=== PATIENT | female | born 1950 ===

== ENCOUNTER 2017-02-28 20:07 | Emergency (ER) | payer MEDICARE ==
[2017-02-28 20:23] VITALS: O2SAT 100
--- NOTE | 2017-02-28 20:25 | C.PDOC ---
History Of Present Illness 66 yo female come in for evaluation of Right sided neck pain and swelling gradually developed for past 2 days. Pt reports, pain gradually started yesterday in AM over Right sided occipital area and neck and gradually worsen during the day, associated with some swelling over upper back. Pain is localized over Right neck and upper back and worse with Right arm movement. Otherwise, pt denies fever, chills, denies worse headache of life, dizziness, vertigo, visual changes, focal deficits, recent illness, sore throat, CP, SOB, dyspnea, diaphoresis, palpitation, abd. pain, N/V/D, back pain, UTI sx, denies weakness, sensory or vascular deficits to B/L UEs. Ambulate to ED for evaluation , appears in pain. Time Seen by Provider: 02/28/17 20:19 Chief Complaint (Nursing): Back Pain Past Medical History Vital Signs: Last Vital Signs Temp 98 F 02/28/17 21:14 Pulse 85 02/28/17 21:14 Resp 18 02/28/17 21:14 BP 122/74 02/28/17 21:14 Pulse Ox 100 02/28/17 21:14 Surgical History: Appendectomy - [facility] Procedures DIPHTHERIA TOXOID ADMIN (03/06/14) IMMOBILIZ/WOUND ATTN NEC (02/15/14) TETANUS TOXOID ADMINIST (03/06/14) Family History: States: No Known Family Hx - Social History Hx Alcohol Use: No Hx Substance Use: No - Immunization History Hx Tetanus Toxoid Vaccination: No Hx Influenza Vaccination: No Hx Pneumococcal Vaccination: No Physical Exam - Physical Exam Appears: Well, Non-toxic, No Acute Distress Skin: Normal Color, Warm, Dry, No Rash Eye(s): bilateral: PERRL Nose: No Flaring Oral Mucosa: Moist Throat: Normal, No Erythema, No Exudate, No Drooling Neck: No Midline Cervical Tenderness, Paracervical Tenderness (Diffuse Right sided lateral neck reproducible tenderness over trapezium muscle with moderate muscle spasm extend from occipital area down to Right upper arm.), No Step Off Deformity, Supple Chest: Symmetrical, No Deformity, No Tenderness Cardiovascular: Rhythm Regular Respiratory: Normal Breath Sounds, No Stridor, No Wheezing Back: Normal Inspection, No Vertebral Tenderness, No Paraspinal Tenderness Extremity: No Pedal Edema Neurological/Psych: Oriented x3, Normal Speech ED Course And Treatment O2 Sat by Pulse Oximetry: 100 Pulse Ox Interpretation: Normal - Other Rad C-spine X-Ray: Interpreted by Me, Viewed By Me Interpretation: (-) acute fx or sublux Right shoulder X-Ray: Interpreted by Me, Viewed By Me Interpretation: (+) mod DJD, no acute fx or dislocation Progress Note: On re-evaluation, pt is afebrile, hemodynamicaly stable. Non- toxic. Pt reports, moderate improvement in pain. head: AT/NC. ENT: no acute findings. neck: (+) Right sided cervical strain with muscle spasm. No midline tenderness, no skin changes. Lungs: CTA B/L, BS equal B/L. Neurologicaly intact. Imaging review and appears without acute abnormalities. Pt was advised on course of ds. ref. to f/u with PMD in 2-3 days for re-eavl. Return if any worsening or new changes. Disposition Counseled Patient/Family Regarding: Studies Performed, Diagnosis, Need For Followup, Rx Given - Disposition Referrals: Austin Bolden MD [Staff Provider] - Disposition: HOME/ ROUTINE Disposition Time: 20:55 Condition: STABLE Additional Instructions: Light duty to Right arm Take medication as prescribed Follow up with PMD in 2-3 days for re-evaluation. return to ED if any worsening or new changes. Prescriptions: Methocarbamol [Robaxin] 500 mg PO TID #14 tab traMADol [Ultram] 50 mg PO TID #7 tab Instructions: Cervical Sprain (ED), Muscle Spasm (ED) - Clinical Impression Clinical Impression: Cervical strain
[2017-02-28] MEDS ORDERED: Oxycodone/Acetaminophen 5/325 mg Tab PO STA (20:35)
[2017-02-28] MEDS ORDERED: Oxycodone/Acetaminophen 5/325 mg Tab ONE (20:37)
[2017-02-28 20:48] LABS: RBC URINE 1 /hpf (0-3); URINE BILIRUBIN NEGATIVE (NEGATIVE); URINE BLOOD NEGATIVE (NEGATIVE); URINE COLOR Yellow (YELLOW); URINE GLUCOSE (UA) NORMAL (Normal); URINE KETONE NEGATIVE (NEGATIVE); URINE LEUKOCYTE ESTERASE NEG Leu/uL (Negative); URINE PROTEIN NEGATIVE (NEGATIVE); URINE UROBILINOGEN NORMAL mg/dL (0.2-1.0); WBC URINE 4 /hpf (0-5)
[2017-02-28 21:15] VITALS: BP 122/74; PULSE 85; RESP 18; TEMP 98
--- NOTE | 2017-03-01 10:37 | RAD ---
PROCEDURE: Radiographs of the Right Shoulder HISTORY: pain COMPARISON: Six FINDINGS: BONES: No acute fracture. JOINTS: Degenerative changes, of right acromioclavicular joint -severe. Moderate glenohumeral degenerative change with high riding humeral head relative to the glenoid indicative of rotator cuff disease. Medial inferior humeral head spur adjacent to the glenoid. SOFT TISSUES: Normal. OTHER FINDINGS: None. IMPRESSION: Degenerative changes as described. No acute findings. Concordant results with the preliminary interpretation rendered by the emergency department physician procedure.
--- NOTE | 2017-03-01 10:39 | RAD ---
PROCEDURE: Cervical Spine Radiographs. HISTORY: Pain. COMPARISON: None. FINDINGS: BONES: Alignment maintained. No fracture. Dens Intact. DISC SPACES: Degenerative changes C5-6 and to lesser extent C6-7. This includes disc space narrowing and non marginal osteophyte formation. SOFT TISSUES: Normal. No prevertebral soft tissue swelling. OTHER FINDINGS: None. IMPRESSION: No acute findings related to/accounting for the clinical presentation.
== END 2017-02-28 21:13 | disposition home or self-care (01) ==
LOC: C.ER 20:07
DX: S16.1XXA Strain of muscle, fascia and tendon at neck level, initial encounter (principal); X58.XXXA Exposure to other specified factors, initial encounter; Y93.89 Activity, other specified; Y92.89 Other specified places as the place of occurrence of the external cause

== ENCOUNTER 2017-03-03 23:34 | Emergency (ER) | payer MEDICARE ==
[2017-03-03] MEDS ORDERED: DiphenhydrAMINE 50 mg/ml Inj ONE (23:41)
[2017-03-03] MEDS ORDERED: DiphenhydrAMINE 50 mg/ml Inj IVP STA (23:59)
[2017-03-03] MEDS ORDERED: MethylPREDNISolone 40 mg Vial IVP STA (23:59)
--- NOTE | 2017-03-04 00:27 | C.PDOC ---
History Of Present Illness Patient is a 66 year old female who presents to the ER with a complaint itchiness and redness to the face and upper extremities after taking diclofenac. Patient denies SOB or throat swelling. Chief Complaint (Nursing): Allergic Reaction History Per: Patient History/Exam Limitations: no limitations Onset/Duration Of Symptoms: Hrs Current Symptoms Are (Timing): Still Present Possible Cause: Medication (diclofenac) Associated Symptoms: Itching, Redness (Face and upper extremities). denies: Swelling, Trouble Swallowing Home/EMS Treatment: None Recent travel outside of the [place]: No Past Medical History Reviewed: Historical Data, Nursing Documentation, Vital Signs Vital Signs: Last Vital Signs Temp 98 F 03/03/17 23:38 Pulse 139 H 03/03/17 23:38 Resp 20 03/03/17 23:38 BP 118/76 03/03/17 23:38 Pulse Ox 96 03/04/17 00:34 - Medical History PMH: HTN Surgical History: Appendectomy - [facility] Procedures DIPHTHERIA TOXOID ADMIN (03/06/14) IMMOBILIZ/WOUND ATTN NEC (02/15/14) TETANUS TOXOID ADMINIST (03/06/14) Family History: States: Unknown Family Hx - Social History Hx Alcohol Use: No Hx Substance Use: No - Immunization History Hx Tetanus Toxoid Vaccination: No Hx Influenza Vaccination: No Hx Pneumococcal Vaccination: No Review Of Systems ENT: Negative for: Throat Swelling Respiratory: Negative for: Shortness of Breath Skin: Positive for: Other (Redness to face and upper extremities. Itchiness) Physical Exam - Physical Exam Appears: Non-toxic, Other (mild distress from itchiness) Skin: Warm, Dry, Other (Slight redness to face and upper extremities) Head: Atraumatic, Normacephalic Eye(s): bilateral: Normal Inspection, EOMI Oral Mucosa: Moist Chest: Symmetrical, No Tenderness Cardiovascular: Rhythm Regular, No Murmur Respiratory: Normal Breath Sounds, No Rales, No Rhonchi, No Wheezing Gastrointestinal/Abdominal: Soft, No Tenderness Neurological/Psych: Oriented x3, Normal Speech, Normal Cognition ED Course And Treatment O2 Sat by Pulse Oximetry: 96 (Room air) Pulse Ox Interpretation: Normal Progress Note: Benadryl, pepcid and solu-medrol administered. Disposition Counseled Patient/Family Regarding: Diagnosis - Disposition Referrals: at [facility] [Outside] Disposition: HOME/ ROUTINE Disposition Time: 01:26 Condition: IMPROVED Prescriptions: DiphenhydrAMINE [Benadryl] 25 mg PO Q6 #20 cap Famotidine [Pepcid] 20 mg PO BID #14 tab Methylprednisolone [Medrol Dose Pack (21 tabs)] 4 mg PO DAILY #21 mg Instructions: General Allergic Reaction (ED) Forms: Gen Discharge Inst Beninese Print Language: BOTSWANAN - POA Present On Arrival: None - Clinical Impression Clinical Impression: Allergic reaction - Scribe Statement The provider has reviewed the documentation as recorded by the Scribsakshi Mejía All medical record entries made by the Feliceibsakshi were at my direction and personally dictated by me. I have reviewed the chart and agree that the record accurately reflects my personal performance of the history, physical exam, medical decision making, and the department course for this patient. I have also personally directed, reviewed, and agree with the discharge instructions and disposition.
[2017-03-04 01:47] VITALS: BP 157/88; PULSE 64; RESP 16; TEMP 98.1; O2SAT 100
== END 2017-03-04 01:46 | disposition home or self-care (01) ==
LOC: C.ER 23:34
DX: L29.9 Pruritus, unspecified (principal); T39.395A Adverse effect of other nonsteroidal anti-inflammatory drugs [NSAID], initial encounter; Y92.009 Unspecified place in unspecified non-institutional (private) residence as the place of occurrence of the external cause
CPT/HCPCS: 96374; 96375; 99284; J1200; J2920

== ENCOUNTER 2017-04-15 06:37 | Day surgery (SDC) | payer MEDICARE ==
[2017-04-12 11:46] VITALS: BMI 23.8
[2017-04-15 07:43] VITALS: O2SAT 100
[2017-04-15] MEDS ORDERED: Lidocaine Hydrochloride 5 ML INJ ONE (08:57)
[2017-04-15] MEDS ORDERED: Propofol 10 mg/ml Inj (20 ML) ONE (08:57)
[2017-04-15 09:54] VITALS: TEMP 97.8
[2017-04-15 10:53] VITALS: BP 110/48; PULSE 56; RESP 13
== END 2017-04-15 10:50 | disposition home or self-care (01) ==
LOC: C.ENDO 06:37
PROVIDERS: ATTEND Internal Medicine Gastroenterology
DX: Z12.11 Encounter for screening for malignant neoplasm of colon (principal); D12.5 Benign neoplasm of sigmoid colon; K64.0 First degree hemorrhoids; K29.70 Gastritis, unspecified, without bleeding; E11.9 Type 2 diabetes mellitus without complications; E78.5 Hyperlipidemia, unspecified; Z98.890 Other specified postprocedural states; Z98.82 Breast implant status; Z79.84 Long term (current) use of oral hypoglycemic drugs; Z79.899 Other long term (current) drug therapy; Z88.6 Allergy status to analgesic agent; Z88.8 Allergy status to other drugs, medicaments and biological substances

== ENCOUNTER 2017-05-15 18:33 | Emergency (ER) | payer MEDICARE ==
[2017-05-15 18:33] VITALS: BMI 23.8
[2017-05-15 18:51] VITALS: O2SAT 100
[2017-05-15] MEDS ORDERED: DiphenhydrAMINE 50 mg/ml Inj IM STA (19:02)
[2017-05-15] MEDS ORDERED: DiphenhydrAMINE 50 mg/ml Inj ONE (19:15)
--- NOTE | 2017-05-15 19:32 | C.PDOC ---
History Of Present Illness The patient is a 66yo female, presents to the ED with complaints of an itching rash all over her body, starting since this morning. Patient is unsure as to the cause of the rash and denies any new clothes, lotion use or eating new foods. Pt also took claritin and benadryl today with no relief. She denies any trouble breathing or swallowing. She currently, offers no additional medical complaints. Time Seen by Provider: 05/15/17 18:58 Chief Complaint (Nursing): Allergic Reaction History Per: Patient History/Exam Limitations: no limitations Onset/Duration Of Symptoms: Days Current Symptoms Are (Timing): Still Present Possible Cause: Unknown Associated Symptoms: Skin Rash, Itching Past Medical History Reviewed: Historical Data, Nursing Documentation, Vital Signs Vital Signs: Last Vital Signs Temp 98.2 F 05/15/17 19:56 Pulse 61 05/15/17 19:56 Resp 20 05/15/17 19:56 BP 130/81 05/15/17 19:56 Pulse Ox 100 05/15/17 20:00 - Medical History PMH: Anxiety, Depression, HTN, Hypercholesterolemia, Osteoporosis Denies: Chronic Kidney Disease Surgical History: Appendectomy, Endoscopy - [facility] Procedures DIPHTHERIA TOXOID ADMIN (03/06/14) IMMOBILIZ/WOUND ATTN NEC (02/15/14) TETANUS TOXOID ADMINIST (03/06/14) Family History: States: Unknown Family Hx - Social History Hx Alcohol Use: No Hx Substance Use: No - Immunization History Hx Tetanus Toxoid Vaccination: No Hx Influenza Vaccination: No Hx Pneumococcal Vaccination: No Review Of Systems ENT: Negative for: Throat Swelling Respiratory: Negative for: Shortness of Breath Skin: Positive for: Rash Physical Exam - Physical Exam Appears: Well, No Acute Distress Skin: Rash (urticarial rash to upper extremities and torso) Head: Atraumatic, Normacephalic Eye(s): bilateral: Normal Inspection, EOMI Nose: Normal Oral Mucosa: Moist Tongue: Normal Appearing, No Swelling Lips: Normal Appearing, No Swelling Throat: Normal, No Erythema, No Exudate, No Drooling Neck: Normal ROM Chest: Symmetrical Cardiovascular: Rhythm Regular Respiratory: Normal Breath Sounds, No Accessory Muscle Use, No Rhonchi, No Wheezing Extremity: Bilateral: Atraumatic, Normal Color And Temperature, Normal ROM Neurological/Psych: Oriented x3, Normal Speech Gait: Steady ED Course And Treatment O2 Sat by Pulse Oximetry: 100 (RA) Pulse Ox Interpretation: Normal Medical Decision Making Medical Decision Making: Impression: Urticarial rash Plan: * Benadryl IM * Prednisone PO Patient with itching and hives to body. Benadryl IM given at patient request and prednisone PO. Advise patient to avoid potential allergens and to continue using antihistamine. Disposition Counseled Patient/Family Regarding: Diagnosis, Need For Followup, Rx Given - Disposition Disposition: HOME/ ROUTINE Disposition Time: 19:52 Condition: IMPROVED Additional Instructions: You may continue taking Benadryl or allergy medicine 25-50mg every 4-6 hours as needed for itching and rash Avoid any potential allergens Usted puede seguir tomando Benadryl o medicina para la alergia 25-50mg cada 4-6 horas segn sea necesario para picazn y erupcin cutnea Evitar cualquier alergeno potencial Prescriptions: Prednisone 50 mg PO DAILY #4 tablet Instructions: Urticaria (ED) Forms: [employer] (St Helenian) Print Language: BERMUDIAN - POA Present On Arrival: None - Clinical Impression Clinical Impression: Allergic urticaria - Scribe Statement The provider has reviewed the documentation as recorded by the Lalita Kidd Provider Attestation: All medical record entries made by the Lalita were at my direction and personally dictated by me. I have reviewed the chart and agree that the record accurately reflects my personal performance of the history, physical exam, medical decision making, and the department course for this patient. I have also personally directed, reviewed, and agree with the discharge instructions and disposition.
[2017-05-15 19:59] VITALS: BP 130/81; PULSE 61; RESP 20; TEMP 98.2
== END 2017-05-15 20:17 | disposition home or self-care (01) ==
LOC: C.ER 18:33
DX: L50.0 Allergic urticaria (principal)
CPT/HCPCS: 96372; 99283; J1200

== ENCOUNTER 2018-04-12 20:12 | Emergency (ER) | payer MEDICARE ==
[2018-04-12 20:13] VITALS: BMI 23.8
[2018-04-12] MEDS ORDERED: Sodium Chloride 0.9% 1,000 ML IV ONE ×2 (21:22→21:27)
--- NOTE | 2018-04-12 21:22 | C.PDOC ---
History Of Present Illness 67 y/o female presents to the ER complaining of mid epigastric and periumbilical pain which began around 11 am today. Patient states that she has associated vomiting. Patient describes the pain as sharp, stabbing, and cramping and she rates the pain 4/10. Denies having fever and chills. Time Seen by Provider: 04/12/18 21:22 Chief Complaint (Nursing): Abdominal Pain History Per: Patient History/Exam Limitations: no limitations Onset/Duration Of Symptoms: Hrs Current Symptoms Are (Timing): Still Present Severity: Moderate Location Of Pain/Discomfort: Epigastric, Periumbilical Quality Of Discomfort: Sharp, Cramping, Stabbing Associated Symptoms: Vomiting. denies: Fever, Chills Past Medical History Reviewed: Historical Data, Nursing Documentation, Vital Signs Vital Signs: Last Vital Signs Temp 98.3 F 04/12/18 20:19 Pulse 95 H 04/12/18 21:46 Resp 22 04/12/18 21:46 BP 111/77 04/12/18 21:46 Pulse Ox 100 04/12/18 21:46 - Medical History PMH: Anxiety, Depression, HTN, Hypercholesterolemia, Osteoporosis Denies: Chronic Kidney Disease Surgical History: Appendectomy, Endoscopy - [facility] Procedures DIPHTHERIA TOXOID ADMIN (03/06/14) IMMOBILIZ/WOUND ATTN NEC (02/15/14) TETANUS TOXOID ADMINIST (03/06/14) Family History: States: No Known Family Hx - Social History Hx Alcohol Use: No Hx Substance Use: No - Immunization History Hx Tetanus Toxoid Vaccination: No Hx Influenza Vaccination: Yes Hx Pneumococcal Vaccination: No Review Of Systems Constitutional: Negative for: Fever, Chills Gastrointestinal: Positive for: Vomiting, Abdominal Pain. Negative for: Nausea , Diarrhea Physical Exam - Physical Exam Appears: Non-toxic, No Acute Distress Skin: Warm, Dry Head: Normacephalic Eye(s): bilateral: Normal Inspection Oral Mucosa: Dry Neck: Supple Chest: Symmetrical Cardiovascular: Rhythm Regular Respiratory: No Rales, No Rhonchi, No Wheezing Gastrointestinal/Abdominal: Soft, Tenderness (diffuse tenderness especially in periumbilical region), No Guarding, No Rebound Extremity: Normal ROM Neurological/Psych: Oriented x3 ED Course And Treatment - Laboratory Results Result Diagrams: 04/12/18 21:38 04/12/18 21:38 O2 Sat by Pulse Oximetry: 98 (RA) Pulse Ox Interpretation: Normal Progress Note: Labs and UA ordered. Patient treated with Zofran IV, Morphine IV , and IV Fluids. Reevaluation Time: 01:11 Reassessment Condition: Improved Medical Decision Making Medical Decision Making: Upon provider reevaluation patient is feeling better, is medically stable, and requires no further treatment in the ED at this time. Patient will be discharged home . Counseling was provided and all questions were answered regarding diagnosis and need for follow up with dr bolden. There is agreement to discharge plan. Return if symptoms persist or worsen. Disposition Counseled Patient/Family Regarding: Studies Performed, Diagnosis, Need For Followup, Rx Given - Disposition Referrals: Austin Bolden MD [Primary Care Provider] - Disposition: HOME/ ROUTINE Disposition Time: 21:22 Condition: FAIR Additional Instructions: Please return if symptoms recur. Do follow up with dr bolden regarding the 1.5 cm pancreatic tail cyst Prescriptions: Dicyclomine [Dicyclomine HCl] 10 mg PO QID #20 cap Instructions: Acute Abdomen (Belly Pain), Adult (DC) Forms: [employer] (Romansh) - Clinical Impression Clinical Impression: Abdominal pain, Pancreatic cyst - Scribe Statement The provider has reviewed the documentation as recorded by the Lalita Garcia Provider Attestation: All medical record entries made by the Feliceibe were at my direction and personally dictated by me. I have reviewed the chart and agree that the record accurately reflects my personal performance of the history, physical exam, medical decision making, and the department course for this patient. I have also personally directed, reviewed, and agree with the discharge instructions and disposition.
[2018-04-12] MEDS ORDERED: Sodium Chloride 0.9% 500 ML IV ONE (21:42)
[2018-04-12] MEDS ORDERED: Morphine 4 MG/ML VIAL ONE (21:42)
[2018-04-12] MEDS ORDERED: Sodium Chloride 0.9% 250 ML IV ONE (21:42)
[2018-04-12 21:43] LABS: BASO % 0.3 % (0.0-2.0); EOS # 0.1 K/uL (0.0-0.7); EOS % 0.6 % (0.0-4.0); HEMOGLOBIN 13.7 g/dL (11.0-16.0); LYMPH # 0.9 K/uL (1.0-4.3); LYMPH % 8.7 % (20.0-40.0); MEAN CELL VOLUME 93.3 fL (81.0-99.0); MEAN CORPUSCULAR HEMOGLOBIN 30.9 pg (27.0-31.0); MEAN CORPUSCULAR HGB CONC 33.1 g/dL (33.0-37.0); MEAN PLATELET VOLUME 7.8 fL (7.2-11.7); MONO # 0.3 K/uL (0.0-0.8); MONO % 2.3 % (0.0-10.0); NEUT # 9.5 K/uL (1.8-7.0); NEUT % 88.1 % (50.0-75.0); NRBC % 0.1 % (0.0-2.0); PLATELET COUNT 319 K/uL (130-400); RBC 4.45 Mil/uL (3.80-5.20); RED CELL DISTRIBUTION WIDTH 14.1 % (11.5-14.5); WHITE BLOOD COUNT 10.8 K/uL (4.8-10.8)
[2018-04-12 21:52] LABS: SQUAMOUS EPITHIAL 8 /hpf (0-5); URINE BILIRUBIN NEGATIVE (NEGATIVE); URINE BLOOD NEGATIVE (NEGATIVE); URINE CLARITY Hazy (Clear); URINE COLOR Yellow (YELLOW); URINE GLUCOSE (UA) NORMAL (Normal); URINE LEUKOCYTE ESTERASE NEG Leu/uL (Negative); URINE PROTEIN NEGATIVE (NEGATIVE); URINE UROBILINOGEN NORMAL mg/dL (0.2-1.0)
[2018-04-12 21:54] LABS: INR 1.1; PROTHROMBIN TIME 12.2 SECONDS (9.7-12.2)
[2018-04-12 21:55] LABS: ALB/GLOB RATIO 1.3 (1.0-2.1); ALBUMIN 4.4 g/dL (3.5-5.0); ALT/SGPT 27 U/L (9-52); AST/SGOT 28 U/L (14-36); BLOOD UREA NITROGEN 16 mg/dL (7-17); CALCIUM 9.3 mg/dl (8.6-10.4); GFR AFRICAN-AMERICAN > 60; GFR NON-AFRICAN AMERICAN > 60; LIPASE 84 U/L (23-300)
[2018-04-12 23:09] LABS: BANDS 3 % (0-2); EOSINOPHIL 2 % (0-4); LYMPHOCYTE 7 % (20-40); MONOCYTE 1 % (0-10); NEUTROPHIL 85 % (50-75); PLATELET ESTIMATE NORMAL (NORMAL); REACTIVE LYMPHOCYTES 2 % (0-0); TOTAL CELLS COUNTED 100
[2018-04-12] MEDS ORDERED: Iodixanol 320 mg/ml 150 ml Bottle IV ONE (23:30)
[2018-04-13 01:23] VITALS: BP 128/76; PULSE 85; RESP 20; TEMP 99.7; O2SAT 97
--- NOTE | 2018-04-13 07:48 | CT ---
Date of service: 04/12/2018 PROCEDURE: CT Abdomen and Pelvis without intravenous contrast HISTORY: periumbilical pain COMPARISON: None. TECHNIQUE: Multiple contiguous axial images were performed through the abdomen and pelvis with the use of intravenous contrast. Subsequently, sagittal and coronal reformatted images were obtained. Radiation dose: Total exam DLP = 336 mGy-cm. This CT exam was performed using one or more of the following dose reduction techniques: Automated exposure control, adjustment of the mA and/or kV according to patient size, and/or use of iterative reconstruction technique. FINDINGS: LOWER THORAX: Unremarkable. LIVER: Unremarkable. No gross lesion or ductal dilatation. GALLBLADDER AND BILE DUCTS: Mild gallbladder dilatation. PANCREAS: 1.5 centimeter rounded low-attenuation pancreatic lesion which has a Hounsfield unit attenuation of approximately 2. This may represent a cystic pancreatic lesion. Differential considerations may include a pancreatic pseudocyst versus cystic pancreatic neoplasm versus additional etiology. Further evaluation with multiphasic CT or MR is recommended if clinically indicated. SPLEEN: Unremarkable. ADRENALS: Unremarkable. No mass. KIDNEYS AND URETERS: Horseshoe kidney noted. VASCULATURE: Unremarkable. No aortic aneurysm. BOWEL: Stomach is fluid-filled and mildly dilated. APPENDIX: Normal appendix is not seen. Postsurgical changes near the cecum, which are likely from prior appendectomy. Clinical correlation. PERITONEUM: Unremarkable. No free fluid. No free air. LYMPH NODES: Unremarkable. No enlarged lymph nodes. BLADDER: Unremarkable. REPRODUCTIVE: Unremarkable. BONES: Degenerative changes in the spine. Anterolisthesis of L5 on S1. OTHER FINDINGS: Bilateral breast implants. IMPRESSION: 1.5 centimeter cystic lesion/mass in the pancreatic tail. If the patient is at high risk for pancreatic malignancy, consider nonemergent follow-up pancreatic CT or MRI for further evaluation. Clinical correlation. Stomach is fluid-filled and mildly dilated. Horseshoe kidney. Degenerative changes in the spine. Anterolisthesis of L5 on S1. Correlation with MRI may be helpful if clinically indicated. Additional findings as above. These findings were preliminarily reported at 12:38 a.m. on 04/13/[address] Chasity Collado from [employer].
== END 2018-04-13 01:45 | disposition home or self-care (01) ==
LOC: C.ER 20:12 → SUPCPDRO 20:12 → C.ER 04-13 01:45
DX: K86.2 Cyst of pancreas (principal); R10.9 Unspecified abdominal pain; I10 Essential (primary) hypertension; E78.00 Pure hypercholesterolemia, unspecified
CPT/HCPCS: 74177; 80053; 81001; 82948; 83690; 85025; 85610; 85730; 86850; 86900; 96374; 96375; 99285; J2270; J2405; J7030; Q9967

== ENCOUNTER 2018-07-01 09:21 | Emergency (ER) | payer MEDICARE ==
[2018-07-01 09:25] VITALS: BMI 25.6
[2018-07-01] MEDS ORDERED: Sodium Chloride 0.9% 1,000 ML IV ONE (09:26)
[2018-07-01] MEDS ORDERED: DiphenhydrAMINE 50 mg/ml Inj IVP STA (09:26)
[2018-07-01] MEDS ORDERED: DiphenhydrAMINE 50 mg/ml Inj ONE (09:34)
[2018-07-01] MEDS ORDERED: Sodium Chloride 0.9% 1,000 ML ONE (09:34)
--- NOTE | 2018-07-01 09:36 | C.PDOC ---
History Of Present Illness 67 y/o female presents to ED for evaluation of allergic reaction after taking 1 tab of Naproxen 500mg this morning at 09:00. Pt states she developed numbness in her tongue, and itching throughout her body 10 minutes after taking the medication. Denies difficulty swallowing, throat swelling, chest pain, shortness of breath, or other associated symptoms. Time Seen by Provider: 07/01/18 09:23 Chief Complaint (Nursing): Allergic Reaction History Per: Patient History/Exam Limitations: no limitations Past Medical History Reviewed: Historical Data, Nursing Documentation, Vital Signs Vital Signs: Last Vital Signs Temp 98.6 F 07/01/18 09:23 Pulse 135 H 07/01/18 09:23 Resp 22 07/01/18 09:23 BP 86/58 L 07/01/18 09:23 Pulse Ox 96 07/01/18 09:23 - Medical History PMH: Anxiety, Depression, HTN, Hypercholesterolemia, Osteoporosis Denies: Chronic Kidney Disease Surgical History: Appendectomy, Endoscopy - [facility] Procedures DIPHTHERIA TOXOID ADMIN (03/06/14) IMMOBILIZ/WOUND ATTN NEC (02/15/14) TETANUS TOXOID ADMINIST (03/06/14) Family History: States: Unknown Family Hx - Social History Hx Alcohol Use: No Hx Substance Use: No - Immunization History Hx Tetanus Toxoid Vaccination: No Hx Influenza Vaccination: No Hx Pneumococcal Vaccination: No Review Of Systems Except As Marked, All Systems Reviewed And Found Negative. Constitutional: Negative for: Fever, Chills ENT: Negative for: Mouth Swelling, Throat Pain, Throat Swelling Cardiovascular: Negative for: Chest Pain Respiratory: Negative for: Shortness of Breath Skin: Positive for: Other (diffuse redness and itching) Neurological: Positive for: Numbness (tongue) Physical Exam - Physical Exam Appears: Non-toxic, No Acute Distress Skin: Warm, Dry, Other (diffuse erythema, pt noted scratching herself) Head: Atraumatic, Normacephalic Eye(s): bilateral: Normal Inspection Oral Mucosa: Moist Tongue: Normal Appearing, No Swelling, No Erythema Lips: Normal Appearing, No Swelling Neck: Normal ROM, Supple Chest: Symmetrical Cardiovascular: Rhythm Regular, No Murmur Respiratory: Normal Breath Sounds, No Accessory Muscle Use, No Rales, No Rhonchi, No Wheezing Gastrointestinal/Abdominal: Soft, No Tenderness Extremity: Normal ROM, No Deformity Neurological/Psych: Oriented x3, Normal Speech ED Course And Treatment O2 Sat by Pulse Oximetry: 96 (RA) Pulse Ox Interpretation: Normal Progress Note: Treated with benadryl, solumedrol and pepcid. On re-evaluation lung clear feeling better. Discharged in stable condition Reassessment Condition: Improved Medical Decision Making Medical Decision Making: Plan: Benadryl Pepcid Solu-Medrol IV fluids Disposition Counseled Patient/Family Regarding: Studies Performed, Diagnosis, Need For Followup - Disposition Referrals: Austin Bolden MD [Staff Provider] - Disposition: HOME/ ROUTINE Disposition Time: 12:00 Condition: IMPROVED Additional Instructions: Stop taking naproxen Return to ED if any increase symptoms Prescriptions: predniSONE [Prednisone] 40 mg PO DAILY #10 tab Instructions: Hives, Side Effects From Medicines Forms: [employer] (Malay) Print Language: PORTUGUESE - Clinical Impression Clinical Impression: Allergic reaction caused by a drug - PA / SHIFT SUPERVISOR / Resident Statement MD/DO has reviewed & agrees with the documentation as recorded. - Scribe Statement The provider has reviewed the documentation as recorded by the Scribe KP All medical record entries made by the Scribe were at my direction and personally dictated by me. I have reviewed the chart and agree that the record accurately reflects my personal performance of the history, physical exam, medical decision making, and the department course for this patient. I have also personally directed, reviewed, and agree with the discharge instructions and disposition.
[2018-07-01 11:28] VITALS: BP 103/52; PULSE 67; RESP 16; TEMP 97.8
[2018-07-01 14:59] VITALS: O2SAT 96
== END 2018-07-01 11:46 | disposition home or self-care (01) ==
LOC: C.ER 09:21
DX: L29.9 Pruritus, unspecified (principal); T39.315A Adverse effect of propionic acid derivatives, initial encounter
CPT/HCPCS: 96361; 96374; 96375; 99285; J1200; J2930; J7030

== ENCOUNTER 2018-09-22 01:09 | Emergency (ER) | payer MEDICARE ==
[2018-09-22 01:09] VITALS: BMI 23.8
[2018-09-22] MEDS ORDERED: Sodium Chloride 0.9% 1,000 ML IV ONE (01:44)
--- NOTE | 2018-09-22 01:48 | C.PDOC ---
History Of Present Illness Patient seen tonite due to suddn onset of left flank pain radiating to the groin. Chief Complaint (Nursing): Abdominal Pain History Per: Patient History/Exam Limitations: no limitations Onset/Duration Of Symptoms: Hrs Current Symptoms Are (Timing): Still Present Severity: Severe Pain Scale Rating Of: 8 Location Of Pain/Discomfort: LUQ Radiation Of Pain To:: Flank Quality Of Discomfort: Sharp Associated Symptoms: Nausea. denies: Fever, Chills, Vomiting Exacerbating Factors: None, Supine, Movement Alleviating Factors: None Last Bowel Movement: Today Recent travel outside of the [place] States: No Additional History Per: Patient Abnormal Vaginal Bleeding: No Past Medical History Vital Signs: Last Vital Signs Temp 97.6 F 09/22/18 01:13 Pulse 96 H 09/22/18 01:13 Resp 18 09/22/18 01:13 BP Pulse Ox 100 09/22/18 01:13 - Medical History PMH: Anxiety, Depression, HTN, Hypercholesterolemia, Osteoporosis Denies: Chronic Kidney Disease Surgical History: Appendectomy, Endoscopy - [facility] Procedures DIPHTHERIA TOXOID ADMIN (03/06/14) IMMOBILIZ/WOUND ATTN NEC (02/15/14) TETANUS TOXOID ADMINIST (03/06/14) Family History: States: Unknown Family Hx - Social History Hx Alcohol Use: No Hx Substance Use: No - Immunization History Hx Tetanus Toxoid Vaccination: No Hx Influenza Vaccination: No Hx Pneumococcal Vaccination: No Review Of Systems Constitutional: Negative for: Fever, Chills, Sweats Cardiovascular: Negative for: Chest Pain, Palpitations, Orthopnea Respiratory: Negative for: Cough, Shortness of Breath, Hemoptysis Gastrointestinal: Positive for: Nausea, Abdominal Pain. Negative for: Vomiting Genitourinary: Negative for: Dysuria, Frequency, Incontinence, Hematuria Musculoskeletal: Negative for: Neck Pain, Shoulder Pain Skin: Negative for: Rash, Lesions Neurological: Negative for: Weakness, Numbness Psych: Negative for: Anxiety, Depression Physical Exam - Physical Exam Appears: In Acute Distress Skin: Normal Color Head: Atraumatic Nose: Normal Lips: Normal Appearing Throat: Normal Neck: Normal Chest: Symmetrical, No Deformity, No Tenderness Cardiovascular: Rhythm Regular Respiratory: Normal Breath Sounds Gastrointestinal/Abdominal: Normal Exam, Tenderness (left flank /upper abd area), Other (tenderness left flank and left aupper quadrant of abd.) Back: Normal Inspection, No CVA Tenderness ED Course And Treatment - Laboratory Results Result Diagrams: 09/22/18 02:19 09/22/18 02:19 O2 Sat by Pulse Oximetry: 100 Disposition Counseled Patient/Family Regarding: Diagnosis - Disposition Referrals: Austin Bolden MD [Staff Provider] - Disposition: HOME/ ROUTINE Disposition Time: 03:39 Condition: STABLE Prescriptions: Ciprofloxacin [Cipro] 500 mg PO BID #14 tab traMADol/Acetaminophen [Ultracet 325 MG-37.5 MG] 1 tab PO Q6 #12 tab Instructions: Urinary Tract Infections in Adults, Acute Abdomen (Belly Pain), Adult (DC), Flank Pain (DC) Forms: [facility] (Bah[place]ian) - POA Present On Arrival: None - Clinical Impression Clinical Impression: Abdominal pain, UTI (urinary tract infection), Flank pain
[2018-09-22 02:24] LABS: BASO # 0.1 K/uL (0.0-0.2); BASO % 0.5 % (0.0-2.0); EOS # 0.1 K/uL (0.0-0.7); EOS % 0.9 % (0.0-4.0); HEMOGLOBIN 13.5 g/dL (11.0-16.0); LYMPH # 3.2 K/uL (1.0-4.3); LYMPH % 22.2 % (20.0-40.0); MEAN CELL VOLUME 93.5 fL (81.0-99.0); MEAN CORPUSCULAR HEMOGLOBIN 31.1 pg (27.0-31.0); MEAN CORPUSCULAR HGB CONC 33.3 g/dL (33.0-37.0); MEAN PLATELET VOLUME 8.3 fL (7.2-11.7); MONO # 0.8 K/uL (0.0-0.8); MONO % 5.2 % (0.0-10.0); NEUT # 10.3 K/uL (1.8-7.0); NEUT % 71.2 % (50.0-75.0); RBC 4.33 Mil/uL (3.80-5.20); RED CELL DISTRIBUTION WIDTH 13.4 % (11.5-14.5); WHITE BLOOD COUNT 14.5 K/uL (4.8-10.8)
[2018-09-22 02:29] LABS: SQUAMOUS EPITHIAL 1 /hpf (0-5); URINE BILIRUBIN NEGATIVE (NEGATIVE); URINE BLOOD NEGATIVE (NEGATIVE); URINE CLARITY Clear (Clear); URINE COLOR Yellow (YELLOW); URINE GLUCOSE (UA) NORMAL (Normal); URINE LEUKOCYTE ESTERASE TRACE Leu/uL (Negative); URINE PROTEIN NEGATIVE (NEGATIVE); URINE UROBILINOGEN NORMAL mg/dL (0.2-1.0)
[2018-09-22 02:35] LABS: BLOOD UREA NITROGEN 19 mg/dL (7-17); GFR NON-AFRICAN AMERICAN > 60; LIPASE 159 U/L (23-300)
[2018-09-22 02:37] LABS: ALB/GLOB RATIO 1.4 (1.0-2.1); ALBUMIN 4.3 g/dL (3.5-5.0); ALT/SGPT 11 U/L (9-52); AST/SGOT 47 U/L (14-36)
[2018-09-22] MEDS ORDERED: Ciprofloxacin 400mg/200ml D5W 400 MG/200 ML BAG IVPB STA (03:33)
[2018-09-22] MEDS ORDERED: Ciprofloxacin 400mg/200ml D5W 400 MG/200 ML BAG IVPB ONE (04:26)
[2018-09-22] MEDS ORDERED: Tramadol 25 mg ONE (04:52)
[2018-09-22 04:59] VITALS: BP 128/72; PULSE 80; RESP 20; TEMP 98; O2SAT 97
--- NOTE | 2018-09-22 11:53 | CT ---
Date of service: 09/22/2018 PROCEDURE: CT Abdomen and Pelvis.. HISTORY: Left flank pain COMPARISON: Comparison made with prior study dated 04/12/2018.. TECHNIQUE: Contiguous axial images of the abdomen and pelvis performed without oral or intravenous contrast material. Additional 2D sagittal and coronal reformats generated. Radiation dose: Total exam DLP = 375.85 mGy-cm. This CT exam was performed using one or more of the following dose reduction techniques: Automated exposure control, adjustment of the mA and/or kV according to patient size, and/or use of iterative reconstruction technique.. The FINDINGS: LOWER THORAX: Unremarkable. LIVER: Liver exhibits normal size and attenuation pattern without masses collections or calcifications. No obvious hepatic masses collections or calcifications.. No significant intrahepatic biliary ductal dilatation GALLBLADDER AND BILE DUCTS: Gallbladder physiologically distended. No evidence of intraluminal gallbladder calculi. No significant ductal dilatation PANCREAS: Less well seen on this study (due to the lack of circulating intravenous contrast material) is an elliptical shaped approximately 14 mm x 11 mm low-attenuation lesion within the distal body/of pancreatic tail junction which exhibits Hounsfield units in the low single digits. This could represent a small pancreatic pseudocyst however on benign or malignant cystic neoplasm of the pancreas not excluded.. SPLEEN: Spleen exhibits normal size and attenuation pattern without mass collection or calcification.. ADRENALS: No definitive adrenal lesions. 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 No evidence of nephrolithiasis or hydronephrosis.. BLADDER: Urinary bladder is incompletely distended which presumably in part accounts for thick-walled appearance. Correlation with urinalysis recommended to exclude a cystitis. REPRODUCTIVE: Unremarkable as visualized. APPENDIX: The redemonstrated are what appear to represent opaque suture and/or metallic surgical clips in the right lower quadrant of the abdomen. The appendix is not seen with any certainty. Findings could be secondary to prior appendectomy however clinical correlation with surgical history recommended. BOWEL: Evaluation of the bowel is somewhat limited due to the lack of oral contrast material. The stomach is distended with food debris liquid and air. Visualized loops of small bowel exhibit normal contour caliber. No evidence of acute mechanical small bowel obstruction however note made of some fecalized content within few loops of small bowel suggesting mild stasis. There is a large amount of stool seen throughout the cecum, ascending transverse and to a lesser degree proximal descending and sigmoid colon consistent with fecal retention/constipation PERITONEUM: Unremarkable. No fluid collection. No free air. LYMPH NODES: Unremarkable. No enlarged lymph nodes. Small fat containing umbilical hernia. VASCULATURE: Unremarkable. No aortic aneurysm. No aortic atherosclerotic calcification or mural plaque present. BONES: Minor multilevel degenerative spondylosis of the lower thoracic and lumbar spine. Minimal anterior subluxation L5 over S1 felt to be secondary to facet arthropathy as noted obvious pars interarticularis defect the. Degenerative changes both hip joints. OTHER FINDINGS: In situ right breast prosthesis again noted. Left breast prosthesis noted on prior exam is a has not been visualized on this study.. IMPRESSION: Less well seen on this study is an elliptical shaped cystic lesion within the distal pancreatic body/tail junction. This lesion is of uncertain etiology and could represent a pancreatic pseudocyst however benign or malignant cystic pancreatic neoplasm not excluded. Horseshoe kidney again noted. No evidence of nephrolithiasis or hydronephrosis Apparent postoperative changes of appendectomy although clinical correlation with history recommended.. The Findings consistent with constipation Redemonstrated though mild fatty hepatic infiltration. Note this report was placed in [place] review folder for follow up.
== END 2018-09-22 04:58 | disposition home or self-care (01) ==
LOC: C.ER 01:09
DX: N39.0 Urinary tract infection, site not specified (principal); R10.12 Left upper quadrant pain; I10 Essential (primary) hypertension; E78.00 Pure hypercholesterolemia, unspecified
CPT/HCPCS: 74176; 80053; 81001; 83690; 85025; 87086; 96374; 96375; 99284; J0744; J2270; J7030

== ENCOUNTER 2018-10-05 07:32 | Outpatient (CLI) | payer MEDICARE | END 2018-10-05 07:33 | disposition home or self-care (01) | LOC: C.USIC 07:33 | DX: K86.2 Cyst of pancreas (principal); Q63.1 Lobulated, fused and horseshoe kidney ==

== ENCOUNTER 2018-10-31 12:23 | Outpatient (CLI) | payer MEDICARE | END 2018-10-31 12:24 | disposition home or self-care (01) | LOC: C.CTH 12:23 | DX: K86.2 Cyst of pancreas (principal) ==